=== PATIENT | male | born 1995 | race African-American/Black ===

== ENCOUNTER → 2018-01-14 | Outpatient (CLI) | payer OTHER | LOC: MHCPAIN 07:45 | DX: G89.29 Other chronic pain (principal); M79.1 Myalgia; R10.9 Unspecified abdominal pain; M79.2 Neuralgia and neuritis, unspecified | CPT/HCPCS: G0463 ==

== ENCOUNTER → 2018-01-23 | Outpatient (CLI) | payer OTHER | LOC: MHCPAIN 08:19 | DX: R10.9 Unspecified abdominal pain (principal); G89.28 Other chronic postprocedural pain | CPT/HCPCS: J1040 ==

== ENCOUNTER → 2018-02-23 | Outpatient (CLI) | payer OTHER | LOC: MHCPAIN 13:55 | DX: G89.29 Other chronic pain (principal); M79.2 Neuralgia and neuritis, unspecified; M79.1 Myalgia | CPT/HCPCS: G0463 ==